=== PATIENT | female | born 1985 ===

== ENCOUNTER 2018-01-31 09:43 | Emergency (ER) | payer OTHER ==
[~2018-01-31] VITALS: Ht 154.9 cm; Wt 72.6 kg
[2018-01-31] MEDS ORDERED: SYNTHROID112 MCG (10:58)
== END 2018-01-31 13:00 | disposition home or self-care (01) ==
LOC: ER 09:43
DX: S13.4XXA Sprain of ligaments of cervical spine, initial encounter (principal); V49.9XXA Car occupant (driver) (passenger) injured in unspecified traffic accident, initial encounter; Y93.89 Activity, other specified; Y92.488 Other paved roadways as the place of occurrence of the external cause; Y99.8 Other external cause status